=== PATIENT | female | born 1960 | race Caucasian/White ===

== ENCOUNTER 2021-12-07 14:09 | Emergency (ER) | payer OTHER ==
[2021-12-07 14:27] VITALS: BP 130/83
[2021-12-07] MEDS ORDERED: Sodium Chloride 0.9% 1000 ML 1,000 ML IV STA (14:33)
[2021-12-07 15:10] LABS: Hematocrit 43.3 % (35-47); Hemoglobin 13.8 gm/dl (12.0-16.0); Mean Cell Volume 94.7 fl (78-100); Mean Corpuscular Hemoglobin 30.2 pg (26-32); Mean Corpuscular Hgb Concent. 31.9 g/dl (32-36); Mean Platelet Volume 9.2 fl (7.5-11.0); Platelet Count 378 K/mm3 (150-450); Red Blood Count 4.57 M/mm3 (4.1-5.4); Red Cell Distribution Width 14.5 % (11.5-14.0); White Blood Count 15.9 K/mm3 (4.0-10.5)
[2021-12-07] MEDS ORDERED: Sodium Chloride 0.9% 1000 ML 1,000 ML ONE (15:10)
[2021-12-07 15:12] VITALS: PULSE 81; O2SAT 98
[2021-12-07 15:14] LABS: Appearance SLIGHTLY CLOUDY (CLEAR); Bilirubin NEGATIVE (NEGATIVE); Blood SMALL Ery/ul (0-5); Epithelial Cells RARE /HPF (FEW); Glucose >=500 mg/dL (NEGATIVE); Ketones NEGATIVE (NEGATIVE); Leukocyte Esterase SMALL (NEGATIVE); Mucus SLIGHT /HPF (NEGATIVE); Nitrite NEGATIVE (NEGATIVE); Protein,Urine Dip NEGATIVE (Negative); RBC 0-2 /HPF (0-2); Specific Gravity 1.017 (1.005-1.025); Urobilinogen NEGATIVE mg/dL (0-1); WBC 0-2 /HPF (0-5)
--- NOTE | 2021-12-07 15:19 | XRAY ---
Indication: Chest pain, short of breath, weakness, and lightheadedness. Comparison: None Portable apical lordotic demonstrates normal heart and lungs. Bony thorax intact with incidental mild degenerative changes and left mastectomy.
[2021-12-07 15:30] LABS: ALKALINE PHOSPHATASE 152 U/L (38-126); AMYLASE 49 U/L (30-110); ANION GAP 15.1 MEQ/L (5-15); BLOOD UREA NITROGEN 14 mg/dL (7-17); CHLORIDE 107 mmol/L (98-107); Calcium 8.6 mg/dL (8.4-10.2); Carbon Dioxide 21 mmol/L (22-30); Creatinine 1 0.95 mg/dL (0.52-1.04); EST GLOMERULAR FILTRATION RATE > 60.0 ML/MIN; Glucose 263 mg/dL (74-106); LIPASE 87 U/L (23-300); Potassium 4.2 mmol/L (3.5-5.1); SGOT/AST 62 U/L (14-36); SGPT/ALT 40 U/L (0-35); SODIUM 139 mmol/L (137-145); Total Protein 7.1 g/dL (6.3-8.2)
--- NOTE | 2021-12-07 15:39 | ERPHSYRPT ---
- History of Present Illness Time Seen by Provider: 12/07/21 14:20 Source: patient Exam Limitations: no limitations Patient Subjective Stated Complaint: pt here for sudden onset of lightheadedness, nausea and pain under right breast while shopping Triage Nursing Assessment: pt alert, resp easy, face mask in place on arrival, skin w/d/p. no edema noted Physician History: This is a 61-year-old white female who presents with sudden onset of lightheadedness and dizziness as well as pain in the left chest under her right breast prior to arrival while shopping. Patient has history in the distant past of breast cancer and has had a mastectomy. Patient has a history of gastroesophageal reflux disease, hypertension, insulin-dependent diabetes, and anxiety/panic disorder. Patient is not short of breath. She does not have any primary chest pain but right side of her ribs hurt. Within the last few months patient was diagnosed with COVID-19 infection and had a pneumonia. She currently denies any flulike symptoms. Timing/Duration: today Severity: mild Associated Symptoms: weakness, No shortness of breath, No chest pain, No headaches Allergies/Adverse Reactions: No Known Drug Allergies Allergy (Unverified 12/07/21 14:28) Home Medications: Albuterol 17 gm IH DAILY PRN 11/16/20 [History] Amlodipine Besylate 5 mg PO DAILY 11/16/20 [History] Capecitabine 500 mg PO UD 11/16/20 [History] Cevimeline HCl 30 mg PO BID 11/16/20 [History] Dapagliflozin Propanediol [Farxiga] 5 mg PO DAILY 11/16/20 [History] Famotidine [Pepcid] 40 mg PO HS 11/16/20 [History] Insulin Aspart [Novolog] 100 unit SQ UD 11/16/20 [History] Losartan Potassium 100 mg PO DAILY 11/16/20 [History] PANTOPRAZOLE 40 mg Tablet [Protonix 40MG Tablet] 40 mg PO HS 11/16/20 [History] Rosuvastatin Calcium 40 mg PO DAILY 11/16/20 [History] Semaglutide [Rybelsus] 7 mg PO DAILY 11/16/20 [History] Venlafaxine HCl ER 75 mg [Effexor XR 75 MG] 150 mg PO DAILY 11/16/20 [History] Zolpidem Tartrate 10 mg PO HS 11/16/20 [History] atenoloL [Atenolol] 25 mg PO DAILY 11/16/20 [History] Hx Tetanus, Diphtheria Vaccination/Date Given: No Hx Influenza Vaccination/Date Given: Yes Hx Pneumococcal Vaccination/Date Given: Yes Immunizations Up to Date: Yes Travel Risk - International Travel Have you traveled outside of the country in past 3 weeks: No - Coronavirus Screening Are you exhibiting any of the following symptoms?: No Close contact with a COVID-19 positive Pt in past 14-21 Days: No - Vaccine Status Have you recieved a Covid-19 vaccination: Yes Information Technology Director: Moderna - Vaccination Dates Date of 2cond Vaccination (if applicable): 2020 - Review of Systems Constitutional: Weakness Eyes: No Symptoms Ears, Nose, & Throat: No Symptoms Respiratory: No Symptoms Cardiac: No Symptoms Abdominal/Gastrointestinal: No Symptoms Genitourinary Symptoms: No Symptoms Musculoskeletal: No Symptoms Skin: No Symptoms Neurological: Dizziness, Other (Lightheadedness) Psychological: No Symptoms Endocrine: No Symptoms Hematologic/Lymphatic: No Symptoms Immunological/Allergic: No Symptoms All Other Systems: Reviewed and Negative - Past Medical History Pertinent Past Medical History: Yes Neurological History: No Pertinent History ENT History: No Pertinent History Cardiac History: High Cholesterol, Hypertension Respiratory History: No Pertinent History Endocrine Medical History: Diabetes Type II Musculoskeletal History: Arthritis GI Medical History: GERD History: No Pertinent History Psycho-Social History: Anxiety, Panic Disorder Female Reproductive Disorders: Breast Cancer Other Medical History: hx breast ca - Past Surgical History Past Surgical History: Yes Neuro Surgical History: No Pertinent History Cardiac: No Pertinent History Respiratory: No Pertinent History Gastrointestinal: Appendectomy Genitourinary: No Pertinent History Musculoskeletal: Orthopedic Surgery Female Surgical History: Hysterectomy, Mastectomy Other Surgical History: foot surgery - Social History Smoking Status: Never smoker Exposure to second hand smoke: Yes Drug Use: none Patient Lives Alone: No - Nursing Vital Signs Nursing Vital Signs: Initial Vital Signs Temperature 97.0 F 12/07/21 14:16 Pulse Rate 80 12/07/21 14:16 Respiratory Rate 18 12/07/21 14:16 Blood Pressure 130/83 12/07/21 14:16 O2 Sat by Pulse Oximetry 96 12/07/21 14:16 Pain Scale Pain Intensity 4 - Physical Exam General Appearance: no apparent distress, alert, anxiety Eye Exam: PERRL/EOMI, eyes nml inspection Ears, Nose, Throat Exam: normal ENT inspection, moist mucous membranes Neck Exam: normal inspection, non-tender, supple, full range of motion Respiratory Exam: normal breath sounds, lungs clear, airway intact, No chest tenderness, No respiratory distress Cardiovascular Exam: regular rate/rhythm, normal heart sounds, normal peripheral pulses Gastrointestinal/Abdomen Exam: soft, normal bowel sounds, No tenderness Pelvic Exam: not done Rectal Exam: not done Back Exam: normal inspection, normal range of motion, No CVA tenderness, No vertebral tenderness Extremity Exam: normal inspection, normal range of motion, pelvis stable Neurologic Exam: alert, oriented x 3, cooperative, handle bar assembler II-XII nml as tested, normal mood/affect, nml cerebellar function, nml station & gait, sensation nml Skin Exam: normal color, warm, dry Lymphatic Exam: No adenopathy SpO2 Interpretation: normal SpO2: 98 O2 Delivery: Room Air - Course Nursing assessment & vital signs reviewed: Yes EKG Interpreted by Me: RATE (81), Sinus Rhythm, NORMAL AXIS, NORMAL INTERVALS, NORMAL QRS, NORMAL ST-T, Other (No acute ischemic changes on the comparison EKG dated 06/02/2021) Ordered Tests: Active Orders 24 hr Category Date Time Status EKG-ER Only STAT Care 12/07/21 14:33 Active IV Insertion STAT Care 12/07/21 14:33 Active CHEST 1 VIEW (PORTABLE) Stat Exams 12/07/21 14:34 Completed AMYLASE Stat Lab 12/07/21 15:05 Completed CBC W DIFF Stat Lab 12/07/21 15:05 Completed CMP Stat Lab 12/07/21 15:05 Completed CULTURE,URINE Stat Lab 12/07/21 15:08 Received LIPASE Stat Lab 12/07/21 15:05 Completed Lactic Acid Stat Lab 12/07/21 14:33 Completed Manual Differential NC Stat Lab 12/07/21 15:05 Completed TROPONIN Q3H Lab 12/07/21 15:05 Completed TROPONIN Q3H Lab 12/07/21 17:45 Ordered TROPONIN Q3H Lab 12/07/21 20:45 Ordered TROPONIN Q3H Lab 12/07/21 23:45 Ordered TROPONIN Q3H Lab 12/08/21 02:45 Ordered UA W/RFX UR CULTURE Stat Lab 12/07/21 15:08 Completed Medication Summary Discontinued Medications Generic Name Dose Route Start Last Admin Trade Name Maye PRN Reason Stop Dose Admin Sodium Chloride 1,000 mls @ 999 mls/hr 12/07/21 14:33 12/07/21 15:12 Sodium Chloride 0.9% 1000 Ml IV 12/07/21 15:33 999 mls/hr .Q1H1M STA Administration Sodium Chloride Confirm 12/07/21 15:10 Sodium Chloride 0.9% 1000 Ml Administered 12/07/21 15:11 Dose 1,000 mls @ ud .ROUTE .K-MED ONE Lab/Rad Data: Laboratory Result Diagrams 12/07/21 15:05 12/07/21 15:05 Laboratory Results 12/07/21 12/07/21 12/07/21 Range/Units 15:08 15:05 15:05 WBC (4.0-10.5) K/mm3 RBC (4.1-5.4) M/mm3 Hgb (12.0-16.0) gm/dl Hct (35-47) % MCV (78-100) fl MCH (26-32) pg MCHC (32-36) g/dl RDW (11.5-14.0) % Plt Count (150-450) K/mm3 MPV (7.5-11.0) fl Sodium 139 (137-145) mmol/L Potassium 4.2 (3.5-5.1) mmol/L Chloride 107 (98-107) mmol/L Carbon Dioxide 21 L (22-30) mmol/L Anion Gap 15.1 H (5-15) MEQ/L BUN 14 (7-17) mg/dL Creatinine 0.95 (0.52-1.04) mg/dL Estimated GFR > 60.0 ML/MIN Glucose 263 H (74-106) mg/dL Lactic Acid (0.4-2.0) Calcium 8.6 (8.4-10.2) mg/dL Total Bilirubin 0.60 (0.2-1.3) mg/dL AST 62 H (14-36) U/L ALT 40 H (0-35) U/L Alkaline Phosphatase 152 H (38-126) U/L Troponin I < 0.012 (0.000-0.034) ng/mL Serum Total Protein 7.1 (6.3-8.2) g/dL Albumin 4.0 (3.5-5.0) g/dL Amylase 49 (30-110) U/L Lipase 87 (23-300) U/L Urine Color YELLOW (YELLOW) Urine Appearance SLIGHTLY CLOUDY (CLEAR) Urine pH 5.0 (5-6) Ur Specific [place] 1.017 (1.005-1.025) Urine Protein NEGATIVE (Negative) Urine Ketones NEGATIVE (NEGATIVE) Urine Blood SMALL (0-5) Zheng/ul Urine Nitrite NEGATIVE (NEGATIVE) Urine Bilirubin NEGATIVE (NEGATIVE) Urine Urobilinogen NEGATIVE (0-1) mg/dL Ur Leukocyte Esterase SMALL (NEGATIVE) Urine WBC (Auto) 0-2 (0-5) /HPF Urine RBC (Auto) 0-2 (0-2) /HPF U Epithel Cells (Auto) RARE (FEW) /HPF Urine Mucus (Auto) SLIGHT (NEGATIVE) /HPF Urine Culture Reflexed YES (NO) Urine Glucose >=500 (NEGATIVE) mg/dL 12/07/21 12/07/21 Range/Units 15:05 14:33 WBC 15.9 H (4.0-10.5) K/mm3 RBC 4.57 (4.1-5.4) M/mm3 Hgb 13.8 (12.0-16.0) gm/dl Hct 43.3 (35-47) % MCV 94.7 (78-100) fl MCH 30.2 (26-32) pg MCHC 31.9 L (32-36) g/dl RDW 14.5 H (11.5-14.0) % Plt Count 378 (150-450) K/mm3 MPV 9.2 (7.5-11.0) fl Sodium (137-145) mmol/L Potassium (3.5-5.1) mmol/L Chloride (98-107) mmol/L Carbon Dioxide (22-30) mmol/L Anion Gap (5-15) MEQ/L BUN (7-17) mg/dL Creatinine (0.52-1.04) mg/dL Estimated GFR ML/MIN Glucose (74-106) mg/dL Lactic Acid 2.8 H (0.4-2.0) Calcium (8.4-10.2) mg/dL Total Bilirubin (0.2-1.3) mg/dL AST (14-36) U/L ALT (0-35) U/L Alkaline Phosphatase (38-126) U/L Troponin I (0.000-0.034) ng/mL Serum Total Protein (6.3-8.2) g/dL Albumin (3.5-5.0) g/dL Amylase (30-110) U/L Lipase (23-300) U/L Urine Color (YELLOW) Urine Appearance (CLEAR) Urine pH (5-6) Ur Specific [place] (1.005-1.025) Urine Protein (Negative) Urine Ketones (NEGATIVE) Urine Blood (0-5) Zheng/ul Urine Nitrite (NEGATIVE) Urine Bilirubin (NEGATIVE) Urine Urobilinogen (0-1) mg/dL Ur Leukocyte Esterase (NEGATIVE) Urine WBC (Auto) (0-5) /HPF Urine RBC (Auto) (0-2) /HPF U Epithel Cells (Auto) (FEW) /HPF Urine Mucus (Auto) (NEGATIVE) /HPF Urine Culture Reflexed (NO) Urine Glucose (NEGATIVE) mg/dL - Departure Departure Disposition: Home Clinical Impression: UTI (urinary tract infection), Hyperglycemia Condition: Stable Critical Care Time: No Referrals: Tequila BLACKBURN [Primary Care Provider] - Follow up/PCP as directed Additional Instructions: Drink plenty of fluids. Take your medication as prescribed. Prescriptions: Levofloxacin [Levaquin 500 MG Tablet] 500 mg PO DAILY #7 tablet
[2021-12-07] MEDS ORDERED: ROCEPHIN 1 Gm-D5w 50 ml Bag** 1 G/50 ML IVPB IV STA (15:46)
[2021-12-07] MEDS ORDERED: ROCEPHIN 1 Gm-D5w 50 ml Bag** 1 G/50 ML IVPB IV ONE (16:23)
[2021-12-07 18:23] LABS: Lymphocytes 4 % (24-44); Neutrophils 96 % (36.0-66.0); Platelet Estimate NORMAL (NORMAL); Total Cells Counted 100
== END 2021-12-07 17:11 | disposition home or self-care (01) ==
LOC: ED 14:09
DX: N39.0 Urinary tract infection, site not specified (principal); E11.65 Type 2 diabetes mellitus with hyperglycemia; Z79.4 Long term (current) use of insulin; R42 Dizziness and giddiness; R07.9 Chest pain, unspecified; I10 Essential (primary) hypertension; F41.9 Anxiety disorder, unspecified; Z86.16 Personal history of COVID-19; E78.5 Hyperlipidemia, unspecified; Z79.899 Other long term (current) drug therapy
CPT/HCPCS: 36000; 36415; 71045; 80053; 81001; 82150; 83605; 83690; 84484; 85025; 87086; 93005; 96365; 99284; J0696

== ENCOUNTER 2022-07-16 10:53 | Day surgery (SDC) | payer OTHER ==
--- NOTE | 2022-07-16 08:51 | HP ---
DATE OF SURGERY: 07/16/2022 HISTORY OF PRESENT ILLNESS: The patient is a 62-year-old who underwent right modified radical mastectomy for right breast cancer. She previously had mastectomy on the left side. She initially did well postoperatively but developed an area of ischemia on the lateral part of her flaps. She understood she has higher risk of ischemia and healing problems. She had a Port-A-Cath on that side in the past. She is seen in the office last week and had an area of flap necrosis, a little bit of drainage from her CHITRA. She was discussed options of operative excisional debridement of this area of ischemia and necrosis, possible packing in the OR. She was offered to have last week but she preferred to wait to schedule at [facility] on 07/16/2022. PAST MEDICAL HISTORY: Breast cancer bilaterally in the past and bilateral mastectomy. Hypertension. Hypothyroidism. Diabetes. Gastroesophageal reflux disease. PAST SURGICAL HISTORY: Appendectomy. Bilateral mastectomy. Hysterectomy. Back surgery. Colonoscopy. MEDICATIONS: Albuterol, amlodipine, Farxiga, Pepcid, NovoLog, losartan, Protonix, Rybelsus, Effexor, zolpidem, Atenolol. ALLERGIES: NKDA. FAMILY HISTORY: Breast cancer. Chronic obstructive pulmonary disease. SOCIAL HISTORY: No smoking. Occasional alcohol use no abuse. REVIEW OF SYSTEMS: Fourteen systems reviewed. No chest pain or palpitations. She is not requiring any pain medication. Other systems negative or noncontributory as above and per preadmission questionnaire. Pertinent for lateral area of ischemia, necrosis with some drainage. PHYSICAL EXAMINATION: GENERAL: No acute distress. HEENT: Sclerae nonicteric. She wears glasses. NECK: No JVD. CHEST: Equal excursion, nonlabored breathing. Medial aspects of the flaps are good, lateral aspect right mastectomy flap has an area of necrosis. CVS: Regular rate and rhythm. ABDOMEN: Soft, nondistended. EXTREMITIES: No cyanosis. NEURO: Alert, oriented, moving extremities symmetrically. PSYCH: Appropriate mood and affect. IMPRESSION: Medial aspects of the flaps are good, lateral aspect right mastectomy flap has an area of necrosis. I feel she would benefit from debridement. Options were discussed. She was offered a week however she preferred to go ahead and wait and schedule at [facility]. Area of flap ischemia and necrosis right mastectomy flaps. I feel she would benefit from excisional debridement, possible packing. If she is still draining from her drain or draining less, will consider removing the drain at that time. Otherwise general risk of anesthesia, deep vein thrombosis, pulmonary embolism or pneumonia, general risk of aches and pain, burning or numbness, possible need for packing or Wound Vac, Risk of anesthesia or sedation but not limited to, consent obtained. Will proceed with excisional debridement of flap ischemia right chest in the OR under general anesthetic.
[2022-07-16] MEDS ORDERED: Pre-Attached Lta Kit TP ONE (11:51)
[2022-07-16] MEDS ORDERED: OFIRMEV 100 ML IV ONE (11:51)
[2022-07-16] MEDS ORDERED: Reglan 10 MG/2 ML IV ONE (12:16)
[2022-07-16] MEDS ORDERED: Xopenex 1.25 MG/0.5 ML UD NEBULE IH ONE (12:16)
[2022-07-16] MEDS ORDERED: Pepcid 20 MG VIAL IV ONE (12:16)
[2022-07-16] MEDS ORDERED: Versed 2 MG/2 ML Injection IV PRN (12:16)
[2022-07-16] MEDS ORDERED: Sodium Chloride 3 ML UD NEBULES IH ONE (12:23)
[2022-07-16] MEDS ORDERED: Lactated Ringers 1,000 ML IV SCH (12:30)
[2022-07-16] MEDS ORDERED: CLINDAMYCIN-D5W 900 MG/50 ML*** 900 MG/50 ML BAG IV SCH (12:30)
[2022-07-16] MEDS ORDERED: DIPRIVAN 200 MG/20 ML IV ONE (13:34)
[2022-07-16] MEDS ORDERED: SUBLIMAZE 100 MCG/2 ML ONE (13:35)
[2022-07-16] MEDS ORDERED: Zofran 4 MG/2 ML VIAL ONE (13:35)
[2022-07-16] MEDS ORDERED: Quelicin Fliptop 200 MG/10 ML ONE (13:35)
[2022-07-16] MEDS ORDERED: Decadron 4 MG INJ ONE (13:35)
[2022-07-16] MEDS ORDERED: Xylocaine-Mpf 2% 5 Ml Vial ONE (13:35)
[2022-07-16] MEDS ORDERED: Zemuron 100 MG/10 ML ONE (14:08)
[2022-07-16] MEDS ORDERED: Ephedrine Sulfate 50 MG/ML ONE (14:14)
[2022-07-16] MEDS ORDERED: PHENYLEPHRINE HCL ONE (14:20)
[2022-07-16] MEDS ORDERED: BRIDION 200MG/2ML IV ONE (14:34)
[2022-07-16 16:54] VITALS: O2SAT 92
[2022-07-16] MEDS ORDERED: NORCO 5/325 MG PO PRN (16:54)
[2022-07-16 17:16] VITALS: BP 175/75; PULSE 88
--- NOTE | 2022-07-17 07:56 | OP ---
SURGERY DATE/TIME: 07/16/2022 1148 PREOPERATIVE DIAGNOSIS: History of bilateral breast cancer. Recent right mastectomy with flap ischemia and necrosis in need of debridement. POSTOPERATIVE DIAGNOSIS: History of bilateral breast cancer. Recent right mastectomy with flap ischemia and necrosis in need of debridement. PROCEDURE: Excisional debridement of ischemic skin and subcutaneous fat right chest wall and axillary post-mastectomy flaps. SURGEON: Dr. Connor Peters. ANESTHESIA: General. ESTIMATED BLOOD LOSS: Minimal. INDICATIONS: As noted above. Risks and benefits explained in detail and not limited to and consent obtained. Site was confirmed and marked in the holding area. DESCRIPTION OF PROCEDURE AND FINDINGS: She was taken to the OR. General anesthesia induced. She is prepped and draped in usual sterile fashion. After official time out and no disagreement with planned procedure, part of her tissue was ischemic and already sloughed. She did have an area 2 x 8 cm long that was carefully trimmed back to viable skin and subcutaneous fat edges of these flaps excisionally debriding this skin and subcu, devitalized skin and subcu and sent off for culture. This is all lateral aspect. The patient has diabetes, had a prior port on this side that was necessary to save for further access and treatment. She had a limited blood supply on this side even though it looked good. At the time of the operation it looked good and then first postoperative visit it was noted to have some flap ischemia and necrosis. The underlying tissue had nice beefy red, good healing tissue. Once the wound was debrided back sharply 8 x 2 cm wide, debrided the skin and subcu out sharply to viable tissue and packed with some saline soaked Kerlix wet to dry while awaiting the CT wound team to address the patient and get a VAC placed. The findings were discussed with the friend or family out in the waiting area. She is to continue local wound care. This looks really good underneath but will take some time to heal this area of flap ischemia that had been debrided back to viable tissue. I will see her back in the office next week. She will be transferred to the recovery room in stable condition.
== END 2022-07-16 17:05 | disposition home or self-care (01) ==
LOC: SDC 10:53
PROVIDERS: ATTEND Surgery
DX: Z08 Encounter for follow-up examination after completed treatment for malignant neoplasm (principal); Z85.3 Personal history of malignant neoplasm of breast; T85.898A Other specified complication of other internal prosthetic devices, implants and grafts, initial encounter; N64.1 Fat necrosis of breast; I99.8 Other disorder of circulatory system; E11.9 Type 2 diabetes mellitus without complications
CPT/HCPCS: 82947; 87046; 87070; 87075; 87116; 87206; 94640; J0330; J1100; J2250; J2370; J2405; J2704; J3010; A9270-GY